=== PATIENT | female | born 1955 | race Caucasian/White ===

== ENCOUNTER 2022-05-20 18:42 | Inpatient (IN) | payer MEDICARE, SELFPAY ==
[2022-05-20 18:48] VITALS: BMI 20.8
[2022-05-20 19:00] VITALS: BP 138/76; PULSE 77; RESP 16; TEMP 36.7; O2SAT 99
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
[2022-05-21 06:00] VITALS: BP 128/61; PULSE 81; RESP 14; O2SAT 97
[2022-05-21 07:00] VITALS: BMI 19.8
[2022-05-21 09:03] LABS: Estimated Average Glucose 214 mg/dL; Hemoglobin A1c % 9.1 %
[2022-05-21 09:22] LABS: Cholesterol 212 mg/dL; HDL Cholesterol 50 mg/dL; LDL Cholesterol Calculated 121 mg/dl; Magnesium 1.6 mg/dL (1.6-2.6); Triglycerides 206 mg/dL
[2022-05-21] MEDS: Atorvastatin Calcium 40 MG TABLET PO (09:33)
[2022-05-21] MEDS: amLODIPine Besylate 5 MG TABLET PO (09:33)
[2022-05-21] MEDS: buPROPion HCl XL 150 MG TAB.ER.24H 450 MG PO (09:33)
[2022-05-21 09:44] LABS: Free T4 (Free Thyroxine) 0.86 ng/dL (0.71-1.85); Thyroid Stimulating Hormone 1.48 uIU/mL (0.32-4.0)
[2022-05-21 10:00] LABS: Vitamin B12 972 pg/mL (200-900)
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
[2022-05-21 10:57] LABS: Glucose, Whole Blood 353 mg/dL (60-115)
[2022-05-21] MEDS: Magnesium Oxide 400 MG TABLET PO ×2 (14:27→21:13)
[2022-05-21] MEDS: HYDROcodone Bit/Acetam 5/325 TABLET 1 TAB PO ×2 (16:05→22:01)
[2022-05-21 16:24] VITALS: BP 128/76; PULSE 80; TEMP 36.6; O2SAT 97
[2022-05-21] MEDS: Insulin Lispro 100 UNIT/ML 3 ML VIAL SUBCUT ×2 (16:59→21:12)
[2022-05-21 17:03] LABS: Glucose, Whole Blood 174 mg/dL (60-115)
[2022-05-21 21:06] LABS: Glucose, Whole Blood 230 mg/dL (60-115)
[2022-05-21] MEDS: Omeprazole 20 MG CAPSULE.DR PO (21:13)
[2022-05-22 06:00] VITALS: BP 137/82; PULSE 83; RESP 17; TEMP 36.4; O2SAT 97
[2022-05-22 06:37] LABS: Glucose, Whole Blood 199 mg/dL (60-115)
[2022-05-22] MEDS: Insulin Lispro 100 UNIT/ML 3 ML VIAL SUBCUT ×3 (08:37→21:05)
[2022-05-22] MEDS: buPROPion HCl XL 150 MG TAB.ER.24H 450 MG PO (08:38)
[2022-05-22] MEDS: Omeprazole 20 MG CAPSULE.DR PO ×2 (08:38→21:27)
[2022-05-22] MEDS: amLODIPine Besylate 5 MG TABLET PO (08:39)
[2022-05-22] MEDS: PARoxetine HCL 10 MG TABLET PO (08:39)
[2022-05-22] MEDS: metFORMIN HCl ER 500 MG TAB.ER.24H 1000 MG PO (08:39)
[2022-05-22] MEDS: Venlafaxine HCl ER 37.5 MG CAP.ER.24H PO (08:39)
[2022-05-22] MEDS: Venlafaxine HCl ER 75 MG CAP.ER.24H PO (08:39)
[2022-05-22] MEDS: Atorvastatin Calcium 40 MG TABLET PO (08:40)
[2022-05-22] MEDS: lisinopriL 2.5 MG TABLET PO (08:40)
[2022-05-22] MEDS: Magnesium Oxide 400 MG TABLET PO ×3 (08:40→21:26)
[2022-05-22] MEDS: glipiZIDE XL 5 MG TAB.ER.24 PO (08:40)
[2022-05-22 09:09] LABS: Estimated Glomerular Filt Rate > 60
[2022-05-22 12:06] LABS: Glucose, Whole Blood 303 mg/dL (60-115)
[2022-05-22] MEDS: Folic Acid 1 MG TABLET PO (12:13)
[2022-05-22] MEDS: Thiamine HCL 100 MG TABLET PO (12:14)
[2022-05-22] MEDS: Multivitamin TABLET 1 TAB PO (12:14)
--- NOTE | 2022-05-22 14:04 | PC.NURSE ---
Pt was administered a MOCA evaluation by this selling underwriter on 05/22 in group room B. She was alert and insightful and presented as negative and irritable, yet was agreeable to take the assessment. Pt received a total score of 30 on the standardized assessment, suggesting that she is well suited for independent living and (I) ADL participation.
--- NOTE | 2022-05-22 15:25 | P.CNHOSGPS_ITS ---
History of Present Illness Data of Consult Service Date: 05/22/22 Requesting physician: Eric Billings Primary Care Provider: Unknown Physician HPI Reason for consult: Routine H&P this is a 66-year-old female admitted to for management of depression. she was initially admitted to [facility] for medical stabilization after she stopped taking her diabetic medication due to depression. The hospitalists were asked to see her for routine medical consultation. she has no specific medical complaints. She was not previously checking her blood sugar at home or taking her medication due to her depression but she is motivated to do so when she returns home. She states that her PCP office has recently created an RN program to assist with different medical needs including diabetic Education. She plans to make use of this resource after discharge. Review of Systems Review of Systems: Yes all other systems are reviewed and are negative Constitutional: Constitutional: Denies chills and Denies fever(s) Cardiovascular: Cardiovascular: Denies chest pain, Denies palpitations and Denies dyspnea Respiratory: Respiratory: Denies cough and Denies dyspnea Gastrointestinal: Gastrointestinal: Denies abdominal pain, Denies nausea and Denies vomiting Endocrine: Endocrine: Denies palpitations [facility] Medical History (Updated 05/22/22 @ 15:42 by ESTRELLA Farley) Diabetes HLD (hyperlipidemia) HTN (hypertension) MDD (major depressive disorder), recurrent episode, severe Functional capacity: independent ambulation Family History (Updated 05/22/22 @ 15:32 by ESTRELLA Farley) Brother Brain cancer Sister Lung cancer Surgical History (Updated 05/22/22 @ 15:31 by ESTRELLA Farley) H/O: hysterectomy Social History Household Members: Spouse Housing: House Do you presently have visiting nurse or other home services: No Patient Tobacco Use Status: Former Tobacco user Tobacco use type: Cigarette Smoked in Last 30 Days: No Use of substances other than those prescribed or required for medical reasons: Yes Substance Use Type: Marijuana Substance Use Frequency: Weekly Last Used Substance: Unknown Currently Displaying Signs/Symptoms of Drug Intoxication Withdrawal: No Any prior treatment program specific to substance use: No Have you been hit, kicked, punched, or otherwise hurt by someone within the past year? If so, by whom?: No Do you feel safe in your current relationship?: Yes Is there a partner from a previous relationship who is making you feel unsafe no w?: No Are you made to feel afraid or neglected: No Advance Directives: Yes Advance Directives Information Provided: No Advance Directives on File: No Do you have thoughts of harming others: None Do you have a plan to hurt others: No Plan Recently lost weight without trying: No Nutrition Risks: No Nutritional Risk Patient : No : No service: No Sexual orientation: Straight/Heterosexual Meds Allergies Allergy/AdvReac Type Severity Reaction Status Date / Time ciprofloxacin AdvReac Severe Gastrointestinal Verified 05/20/22 19:35 Upset Active Medications: Current Medications Acetaminophen (Acetaminophen 325 Mg Tablet) 650 mg PO Q6H PRN PRN Reason: Headache/Pain Mild Scale (1-3) Hydrocodone Bitart/Acetaminophen (Hydrocodone Bit/Acetam 5/325 Tablet) 1 tab PO TID PRN PRN Reason: Migraine Headache Al Hydroxide/Mg Hydroxide (Magnesium Hydrox/Alum Hydrox 30 Ml Oral.Susp) 30 ml PO Q6H PRN PRN Reason: Heartburn/Nausea Amlodipine Besylate (Amlodipine Besylate 5 Mg Tablet) 5 mg PO DAILY [facility]; Protocol Last Admin: 05/22/22 08:39 Dose: 5 mg Atorvastatin Calcium (Atorvastatin Calcium 40 Mg Tablet) 40 mg PO DAILY [facility] Last Admin: 05/22/22 08:40 Dose: 40 mg Bupropion HCl (Bupropion Hcl Xl 150 Mg Tab.Er.24h) 450 mg PO DAILY [facility] Last Admin: 05/22/22 08:38 Dose: 450 mg Folic Acid (Folic Acid 1 Mg Tablet) 1 mg PO DAILY [facility] Glipizide (Glipizide Xl 5 Mg Tab.Er.24) 5 mg PO DAILY [facility] Last Admin: 05/22/22 08:40 Dose: 5 mg Hydroxyzine HCl (Hydroxyzine Hcl 25 Mg Tablet) 25 mg PO Q6H PRN PRN Reason: Anxiety Insulin Human Lispro (Insulin Lispro 100 Unit/Ml 3 Ml Vial) 0 unit SUBCUT QIDACHS [facility]; Protocol Last Admin: 05/22/22 12:13 Dose: 8 unit Lisinopril (Lisinopril 2.5 Mg Tablet) 2.5 mg PO DAILY [facility]; Protocol Last Admin: 05/22/22 08:40 Dose: 2.5 mg Lorazepam (Lorazepam 1 Mg Tablet) 1 mg PO DAILY PRN PRN Reason: anxiety Magnesium Hydroxide (Milk Of Magnesia 30 Ml Oral.Susp) 30 ml PO DAILY PRN PRN Reason: Constipation Magnesium Oxide (Magnesium Oxide 400 Mg Tablet) 400 mg PO TID [facility] Stop: 05/23/22 23:59 Last Admin: 05/22/22 14:20 Dose: 400 mg Melatonin (Melatonin 3 Mg Tablet) 3 mg PO BEDTIME PRN PRN Reason: Insomnia Metformin HCl (Metformin Hcl Er 500 Mg Tab.Er.24h) 1,000 mg PO DAILY [facility] Last Admin: 05/22/22 08:39 Dose: 1,000 mg Multivitamins/Vitamin C (Multivitamin Tablet) 1 tab PO DAILY [facility] Omeprazole (Omeprazole 20 Mg Capsule.Dr) 20 mg PO BID [facility] Last Admin: 05/22/22 08:38 Dose: 20 mg Paroxetine HCl (Paroxetine Hcl 10 Mg Tablet) 10 mg PO DAILY [facility] Last Admin: 05/22/22 08:39 Dose: 10 mg Pioglitazone HCl (Pioglitazone Hcl 15 Mg Tablet) 15 mg PO DAILY [facility] Last Admin: 05/22/22 08:38 Dose: 15 mg Simethicone (Simethicone 80 Mg Tab.Chew) 80 mg PO DAILY PRN PRN Reason: gas Thiamine HCl (Thiamine Hcl 100 Mg Tablet) 100 mg PO DAILY [facility] Trazodone HCl (Trazodone Hcl 50 Mg Tablet) 50 mg PO BEDTIME PRN PRN Reason: Insomnia Venlafaxine HCl (Venlafaxine Hcl Er 75 Mg Cap.Er.24h) 75 mg PO DAILY [facility] Last Admin: 05/22/22 08:39 Dose: 75 mg Venlafaxine HCl (Venlafaxine Hcl Er 37.5 Mg Cap.Er.24h) 37.5 mg PO DAILY [facility] Last Admin: 05/22/22 08:39 Dose: 37.5 mg Home Medications Medication Instructions Recorded Confirmed Last Taken Type amlodipine 5 mg tablet 1 tab PO DAILY 05/20/22 05/20/22 05/20/22 09:00 History atorvastatin 40 mg tablet 1 tab PO DAILY 05/20/22 05/20/22 05/20/22 History bupropion HCl 450 mg PO DAILY 05/20/22 05/20/22 05/20/22 09:00 History glipizide 5 mg tablet, extended 5 mg PO DAILY 05/20/22 05/20/22 05/20/22 09:00 History release 24 hr hydrocodone 5 mg-acetaminophen 325 1 tab PO Q6H PRN Migraine Headache 05/20/22 05/20/22 Unknown History mg tablet lisinopril 2.5 mg tablet 1 tab PO DAILY 05/20/22 05/20/22 05/20/22 09:00 History lorazepam 1 mg tablet 1 mg PO NEEDED 05/20/22 05/20/22 05/20/22 11:00 History magnesium oxide 400 mg PO 3XD 05/20/22 05/20/22 05/20/22 17:00 History melatonin 3 mg PO NEEDED PRN Insomnia 05/20/22 05/20/22 Unknown History metformin 500 mg tablet,extended 2 tab PO DAILY 05/20/22 05/20/22 05/20/22 17:00 History release 24 hr pantoprazole 40 mg PO BID 05/20/22 05/20/22 05/20/22 09:00 History pioglitazone 15 mg PO DAILY 05/20/22 05/20/22 05/20/22 09:00 History simethicone 80 mg PO DAILY PRN gas 05/20/22 05/20/22 Unknown History simvastatin 05/20/22 Unknown History venlafaxine 150 mg 1 cap PO DAILY 05/20/22 05/20/22 05/20/22 09:00 History capsule,extended release 24 hr Results Labs CBC and Chem 7: 05/22/22 08:44 Labs: Laboratory Results - last 24 hr 05/21/22 05/21/22 05/22/22 16:50 21:01 06:28 Estim Creat Clear Calc Estimated GFR POC Glucose 174 H 230 H 199 H 05/22/22 05/22/22 08:44 12:01 Estim Creat Clear Calc 60.0 Estimated GFR > 60 POC Glucose 303 H Assessment and Plan (1) Diabetes: Status: Acute Plan this is a 66-year-old female with history of diabetes, hypertension, hyperlipidemia who was is currently admitted to for management of depression diabetes, uncontrolled was not taking medications as outpatient -continue baseline meds -encourage diabetic diet -outpatient nutrition consult for diabetic education Hypertension Blood pressure under adequate control Continue Norvasc, lisinopril HLD Continue Atorvastatin Thank you for allowing us to participate in the care of this patient. Physical Exam Vital Signs: Last Vital Signs Temp 97.5 F 05/22/22 06:00 Pulse 83 05/22/22 06:00 Resp 17 05/22/22 06:00 BP 137/82 05/22/22 06:00 Pulse Ox 97 05/22/22 06:00 O2 Del Method 05/22/22 06:00 BMI result Body Mass Index 19.8 Const General: comfortable, no acute distress, alert and awake Nutritional Appearance: thin Orientation/consciousness: patient oriented x3 Resp Effort & Inspection: normal respiratory effort, able to speak in complete sentences, no respiratory distress and no use of accessory muscles Auscultation: clear to auscultation bilaterally Cardio Rate: regular rate Heart sounds: S1 normal heart sound present and S2 normal heart sound present GI Inspection: No distended Palpation (GI): nontender Neuro General: patient oriented x3 and CN's II-XI intact bilaterally Cranial nerves: Yes CN's II-XII intact bilaterally Extrem General: Yes no pedal edema
--- NOTE | 2022-05-22 17:09 | PC.NURSE ---
Patient signed a 3-day notice on 05/22/2022.
[2022-05-22 17:24] LABS: Glucose, Whole Blood 79 mg/dL (60-115)
[2022-05-22 18:00] VITALS: BP 125/65; PULSE 97; TEMP 36.7; O2SAT 98
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
[2022-05-22 20:55] LABS: Glucose, Whole Blood 201 mg/dL (60-115)
[2022-05-22] MEDS: HYDROcodone Bit/Acetam 5/325 TABLET 1 TAB PO (21:27)
[2022-05-22] MEDS: Topiramate 25 MG TABLET PO (21:27)
[2022-05-23 06:00] VITALS: BP 137/81; PULSE 85; RESP 16; TEMP 36.7; O2SAT 98
[2022-05-23 09:14] LABS: Glucose, Whole Blood 352 mg/dL (60-115)
[2022-05-23] MEDS: buPROPion HCl XL 150 MG TAB.ER.24H 450 MG PO (09:43)
[2022-05-23] MEDS: Venlafaxine HCl ER 75 MG CAP.ER.24H PO (09:43)
[2022-05-23] MEDS: PARoxetine HCL 20 MG TABLET PO (09:44)
[2022-05-23] MEDS: metFORMIN HCl ER 500 MG TAB.ER.24H 1000 MG PO ×2 (09:44→20:30)
[2022-05-23] MEDS: glipiZIDE XL 5 MG TAB.ER.24 PO (09:44)
[2022-05-23] MEDS: lisinopriL 2.5 MG TABLET PO (09:44)
[2022-05-23] MEDS: Folic Acid 1 MG TABLET PO (09:44)
[2022-05-23] MEDS: Omeprazole 20 MG CAPSULE.DR PO ×2 (09:44→20:30)
[2022-05-23] MEDS: Atorvastatin Calcium 40 MG TABLET PO (09:45)
[2022-05-23] MEDS: Multivitamin TABLET 1 TAB PO (09:45)
[2022-05-23] MEDS: Thiamine HCL 100 MG TABLET PO (09:45)
[2022-05-23] MEDS: Insulin Lispro 100 UNIT/ML 3 ML VIAL SUBCUT ×4 (09:45→20:50)
[2022-05-23] MEDS: Magnesium Oxide 400 MG TABLET PO ×3 (09:45→20:30)
[2022-05-23] MEDS: amLODIPine Besylate 5 MG TABLET PO (09:45)
[2022-05-23 12:30] LABS: Glucose, Whole Blood 403 mg/dL (60-115)
[2022-05-23 14:07] LABS: Glucose, Whole Blood 341 mg/dL (60-115)
[2022-05-23] MEDS: Insulin Glargine,Hum.rec.anlog 100 UNIT/ML 10 ML VIAL 15 UNIT SUBCUT (14:20)
[2022-05-23 14:26] VITALS: BP 150/80; PULSE 88; RESP 16; TEMP 36.9; O2SAT 99
--- NOTE | 2022-05-23 14:29 | PC.NURSE ---
Patient reported that she was starting to feel like she was having a hot flash. POC taken. MD notified. Given medication per order. 15 units of lantus. Vitals input. Will continue to monitor.
[2022-05-23 14:56] LABS: Glucose, Whole Blood 309 mg/dL (60-115)
[2022-05-23 16:32] VITALS: BP 135/77; PULSE 96; RESP 18; TEMP 36.9; O2SAT 95
[2022-05-23 16:38] LABS: Glucose, Whole Blood 240 mg/dL (60-115)
[2022-05-23] MEDS: Loperamide HCl 2 MG CAPSULE PO (18:48)
[2022-05-23] MEDS: Melatonin 3 MG TABLET PO (20:30)
[2022-05-23] MEDS: Topiramate 25 MG TABLET PO (20:30)
[2022-05-23 20:54] LABS: Glucose, Whole Blood 203 mg/dL (60-115)
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
[2022-05-24 03:35] VITALS: BP 128/75; PULSE 88; RESP 16; TEMP 36.1; O2SAT 98
[2022-05-24] MEDS: Magnesium Hydrox/Alum Hydrox 30 ML ORAL.SUSP PO (03:44)
[2022-05-24] MEDS: Ondansetron ODT 4 MG TAB.RAPDIS TRANSLINGU ×2 (04:23→09:37)
[2022-05-24 07:50] LABS: Glucose, Whole Blood 157 mg/dL (60-115)
[2022-05-24 09:14] VITALS: BP 136/78; PULSE 84; RESP 16; TEMP 36.3; O2SAT 98
[2022-05-24] MEDS: Atorvastatin Calcium 40 MG TABLET PO (09:20)
[2022-05-24] MEDS: lisinopriL 2.5 MG TABLET PO (09:20)
[2022-05-24] MEDS: Folic Acid 1 MG TABLET PO (09:20)
[2022-05-24] MEDS: amLODIPine Besylate 5 MG TABLET PO (09:21)
[2022-05-24] MEDS: Thiamine HCL 100 MG TABLET PO (09:21)
[2022-05-24] MEDS: PARoxetine HCL 30 MG TABLET PO (09:21)
[2022-05-24] MEDS: Omeprazole 20 MG CAPSULE.DR PO ×2 (09:21→21:09)
[2022-05-24] MEDS: glipiZIDE XL 5 MG TAB.ER.24 PO (09:21)
[2022-05-24] MEDS: Venlafaxine HCl ER 37.5 MG CAP.ER.24H PO (09:21)
[2022-05-24] MEDS: Multivitamin TABLET 1 TAB PO (09:21)
[2022-05-24] MEDS: buPROPion HCl XL 150 MG TAB.ER.24H 450 MG PO (09:21)
[2022-05-24] MEDS: Insulin Glargine,Hum.rec.anlog 100 UNIT/ML 10 ML VIAL 15 UNIT SUBCUT (10:57)
[2022-05-24 11:59] LABS: Glucose, Whole Blood 269 mg/dL (60-115)
[2022-05-24] MEDS: Insulin Lispro 100 UNIT/ML 3 ML VIAL SUBCUT ×3 (13:59→21:27)
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
[2022-05-24 16:54] LABS: Glucose, Whole Blood 156 mg/dL (60-115)
[2022-05-24 17:24] VITALS: BP 129/73; PULSE 85; RESP 16; TEMP 36.8; O2SAT 99
[2022-05-24] MEDS: Topiramate 25 MG TABLET PO (21:09)
[2022-05-24] MEDS: Melatonin 3 MG TABLET PO (21:09)
[2022-05-24] MEDS: LORazepam 1 MG TABLET PO (21:10)
[2022-05-24 21:23] LABS: Glucose, Whole Blood 152 mg/dL (60-115)
[2022-05-25 06:29] LABS: Glucose, Whole Blood 145 mg/dL (60-115)
[2022-05-25 08:38] LABS: Glucose, Whole Blood 173 mg/dL (60-115)
[2022-05-25 08:45] VITALS: BP 125/63; PULSE 87; RESP 16; TEMP 36.8; O2SAT 98
[2022-05-25] MEDS: Insulin Glargine,Hum.rec.anlog 100 UNIT/ML 10 ML VIAL 15 UNIT SUBCUT (08:50)
[2022-05-25] MEDS: Insulin Lispro 100 UNIT/ML 3 ML VIAL SUBCUT ×2 (08:52)
[2022-05-25] MEDS: Venlafaxine HCl ER 37.5 MG CAP.ER.24H PO (08:53)
[2022-05-25] MEDS: glipiZIDE XL 5 MG TAB.ER.24 PO (08:53)
[2022-05-25] MEDS: metFORMIN HCl ER 500 MG TAB.ER.24H 1000 MG PO (08:53)
[2022-05-25] MEDS: Multivitamin TABLET 1 TAB PO (08:53)
[2022-05-25] MEDS: amLODIPine Besylate 5 MG TABLET PO (08:53)
[2022-05-25] MEDS: lisinopriL 2.5 MG TABLET PO (08:53)
[2022-05-25] MEDS: PARoxetine HCL 30 MG TABLET PO (08:53)
[2022-05-25] MEDS: Folic Acid 1 MG TABLET PO (08:53)
[2022-05-25] MEDS: buPROPion HCl XL 150 MG TAB.ER.24H 450 MG PO (08:53)
[2022-05-25] MEDS: Atorvastatin Calcium 40 MG TABLET PO (08:53)
[2022-05-25] MEDS: Omeprazole 20 MG CAPSULE.DR PO ×2 (08:53→20:32)
[2022-05-25] MEDS: Thiamine HCL 100 MG TABLET PO (08:54)
[2022-05-25 12:47] LABS: Glucose, Whole Blood 89 mg/dL (60-115)
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
[2022-05-25 17:40] LABS: Glucose, Whole Blood 86 mg/dL (60-115)
[2022-05-25] MEDS: Ondansetron ODT 4 MG TAB.RAPDIS TRANSLINGU (19:28)
[2022-05-25 20:15] VITALS: BP 120/70; PULSE 91; TEMP 36.6; O2SAT 97
[2022-05-25 20:31] LABS: Glucose, Whole Blood 177 mg/dL (60-115)
[2022-05-25] MEDS: Topiramate 25 MG TABLET PO (20:32)
[2022-05-25] MEDS: Melatonin 3 MG TABLET PO (20:32)
[2022-05-25] MEDS: LORazepam 1 MG TABLET PO (20:33)
[2022-05-26 06:00] VITALS: BP 144/89; PULSE 87; RESP 16; TEMP 36.3; O2SAT 97
[2022-05-26 06:44] LABS: Glucose, Whole Blood 90 mg/dL (60-115)
[2022-05-26 08:13] LABS: Glucose, Whole Blood 91 mg/dL (60-115)
[2022-05-26] MEDS: metFORMIN HCl ER 500 MG TAB.ER.24H 1000 MG PO (08:52)
[2022-05-26] MEDS: lisinopriL 2.5 MG TABLET PO (08:53)
[2022-05-26] MEDS: Multivitamin TABLET 1 TAB PO (08:53)
[2022-05-26] MEDS: glipiZIDE XL 5 MG TAB.ER.24 PO (08:53)
[2022-05-26] MEDS: Atorvastatin Calcium 40 MG TABLET PO (08:53)
[2022-05-26] MEDS: buPROPion HCl XL 150 MG TAB.ER.24H 450 MG PO (08:53)
[2022-05-26] MEDS: Thiamine HCL 100 MG TABLET PO (08:53)
[2022-05-26] MEDS: PARoxetine HCL 30 MG TABLET PO (08:53)
[2022-05-26] MEDS: Folic Acid 1 MG TABLET PO (08:53)
[2022-05-26] MEDS: Venlafaxine HCl ER 37.5 MG CAP.ER.24H PO (08:54)
[2022-05-26] MEDS: Omeprazole 20 MG CAPSULE.DR PO (08:54)
[2022-05-26] MEDS: amLODIPine Besylate 5 MG TABLET PO (08:54)
[2022-05-26] MEDS: Insulin Glargine,Hum.rec.anlog 100 UNIT/ML 10 ML VIAL 15 UNIT SUBCUT (08:57)
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
[2022-05-26 12:17] LABS: Glucose, Whole Blood 94 mg/dL (60-115)
[2022-05-26] MEDS: Ondansetron ODT 4 MG TAB.RAPDIS TRANSLINGU (12:18)
== END 2022-05-26 15:06 | disposition home or self-care (01) | DRG 885 ==
PROVIDERS: Registered Nurse; Admitting Provider Psychiatry & Neurology Psychiatry; Visit Provider Psychiatry & Neurology Psychiatry
DX: F33.2 Major depressive disorder, recurrent severe without psychotic features (principal); I10 Essential (primary) hypertension; E78.5 Hyperlipidemia, unspecified; E11.65 Type 2 diabetes mellitus with hyperglycemia; Z87.891 Personal history of nicotine dependence; Z88.1 Allergy status to other antibiotic agents; Z79.4 Long term (current) use of insulin; Z79.84 Long term (current) use of oral hypoglycemic drugs; Z79.899 Other long term (current) drug therapy
CPT/HCPCS: 36415; 80061; 82565; 82607; 82746; 82947; 83036; 83735; 84439; 84443